=== PATIENT | female | born 1980 | race Caucasian/White ===

== ENCOUNTER → 2017-05-07 | Outpatient (CLI) | payer OTHER ==
[~2017-05-07] MED LIST: ALBU8.5H12 IH; BCP; IBU800 PO; NIF10 PO; PER PO
== END ==
LOC: LAB 10:43
PROVIDERS: ATTEND Nurse Practitioner
DX: Z02.9 Encounter for administrative examinations, unspecified (principal)
CPT/HCPCS: 36415; 99001

== ENCOUNTER → 2017-07-07 | Outpatient (REF) | payer OTHER ==
[2017-07-07 17:16] LABS: PLATELET COUNT, AUTOMATED 213 K/uL (150-450)
== END ==
LOC: ZZSENDIN 16:59
PROVIDERS: ATTEND Physician Assistant
DX: R42 Dizziness and giddiness (principal)
CPT/HCPCS: 85025

== ENCOUNTER → 2017-08-24 | Outpatient (CLI) | payer OTHER ==
[~2017-08-24] MED LIST changes: +GADOBENATE 529MG/1ML 15ML VIAL IVP ONE
--- NOTE | 2017-08-24 10:48 | RADIOLOGY IMAGING REPORT ---
FACILITY: [facility] PATIENT NAME: Kitty Earl : 1980 MR: [id number] V: [id number] EXAM DATE: ORDERING PHYSICIAN: TERRI BEAULIEU TECHNOLOGIST: Location: [facility] Patient: Kitty Earl : 1980 Visit/Account:[id number] Date of Sevice: 08/24/2017 EXAMINATION: MRI Brain without IV contrast MRI Brain with IV contrast History: Paresthesia, random facial numbness. COMPARISON STUDIES: 08/28/2015 TECHNIQUE: Multi-planar, multi-sequence brain MRI was performed before and after IV gadolinium. Contrast: 15 mL of IV MultiHance FINDINGS: Paranasal sinuses / mastoid air cells: negative Calvarium and scalp: negative White matter: Negative. Ventricles / sulci / fissures: negative Masses / hemorrhage / midline shift: negative Extra-axial spaces: Normal for age. Enhancement pattern: negative Vascular structures: negative Sagittal midline structures: negative Orbits: negative Visualized upper neck: negative IMPRESSION: Normal MRI of the brain. There is no evidence of an intracranial mass, hemorrhage or acute ischemia. Report Dictated By: Eduardo Abreu MD at 08/24/2017 10:39 AM Report E-Signed By: Eduardo Abreu MD at 08/24/2017 10:43 AM [id number]
== END ==
LOC: MRI 09:26
PROVIDERS: ATTEND Physician Assistant
DX: R20.2 Paresthesia of skin (principal)
CPT/HCPCS: 70553; A9577

== ENCOUNTER → 2018-03-24 | Outpatient (REF) ==
[~2018-03-24] MED LIST changes: -GADOBENATE 529MG/1ML 15ML VIAL IVP ONE
[2018-03-24 08:17] LABS: LDL CHOLESTEROL 103 mg/dl
== END ==
DX: Z02.9 Encounter for administrative examinations, unspecified (principal)